=== PATIENT | female | born 1990 | race Two or more races ===

== ENCOUNTER 2019-09-23 19:32 | Emergency (ER) | payer OTHER ==
[~2019-09-23] VITALS: Ht 149.9 cm; Wt 51.7 kg
[2019-09-23 19:34] VITALS: BP 118/72
--- NOTE | 2019-09-23 19:43 | NUR ---
AT THE BED SIDE
--- NOTE | 2019-09-23 20:00 | NUR ---
BLOOD WAS DRAWN. PT IS MEDICALLY CLEAR FOR D/C, PT WAS INSTRUCTED TO F/U W/ [employer] [facility], Patient discharged to home in stable condition. Written and verbal after care instructions given. Patient verbalizes understanding of instruction.
== END 2019-09-23 20:00 | disposition home or self-care (01) ==
LOC: ER 19:39
DX: Z77.21 Contact with and (suspected) exposure to potentially hazardous body fluids (principal)
CPT/HCPCS: 36415; 86706; 86803; 87806

== ENCOUNTER 2019-11-14 09:45 | Emergency (ER) | payer OTHER ==
[~2019-11-14] VITALS: Ht 149.9 cm; Wt 51.7 kg
[2019-11-14 09:53] VITALS: BP 118/66
--- NOTE | 2019-11-14 10:10 | NUR ---
tel: [phone]
--- NOTE | 2019-11-14 10:11 | NUR ---
COVID SWAB DONE
== END 2019-11-14 10:12 | disposition home or self-care (01) ==
LOC: ER 09:49
DX: J02.9 Acute pharyngitis, unspecified (principal); Z20.828 Contact with and (suspected) exposure to other viral communicable diseases
CPT/HCPCS: 99283; C9803; U0003

== ENCOUNTER 2021-09-02 11:45 | Emergency (ER) | payer OTHER ==
[~2021-09-02] VITALS: Ht 149.9 cm; Wt 56.2 kg
--- NOTE | 2021-09-02 11:50 | NUR ---
NEAR SYNCOPAL EPISODE WHILE AT WORK, PALE UPON ARRIVAL. CAME IN BY WHEELCHAIR, [id number].
--- NOTE | 2021-09-02 12:15 | NUR ---
AT BED SIDE
--- NOTE | 2021-09-02 12:17 | NUR ---
ECG DONE NORMAL SINUS
--- NOTE | 2021-09-02 12:29 | NUR ---
IV LINE ESTABLISHED BLOOD DRAWN AND SENT TO LAB.
[2021-09-02] MEDS ORDERED: IV NS 0.9% 1,000 ML IV ONE (12:30)
[2021-09-02 12:51] LABS: BASOPHILS % (AUTO) 0.7 % (0.0-2.0); EOSINOPHILS % (AUTO) 0.7 % (0.0-6.0); HEMATOCRIT 37 % (33-45); HEMOGLOBIN 12.3 g/dL (11.5-14.8); LYMPHOCYTES # (AUTO) 1.9 K/uL (0.8-4.8); LYMPHOCYTES % (AUTO) 40.3 % (20.0-44.0); MEAN CORPUSCULAR HGB CONC 33 g/dl (31.0-36.0); MEAN CORPUSCULAR VOLUME 92 fL (82-100); MONOCYTES # (AUTO) 0.4 K/uL (0.1-1.30); MONOCYTES % (AUTO) 8.5 % (2.0-12.0); NEUTROPHILS # (AUTO) 2.3 K/uL (1.8-8.9); NEUTROPHILS % (AUTO) 49.8 % (43.0-81.0); PLATELET COUNT (AUTO) 248 K/uL (150-450); RED BLOOD CELL COUNT(AUTO) 4.05 MIL/uL (4.0-5.2); WHITE BLOOD COUNT (AUTO) 4.6 K/uL (4.3-11.0)
[2021-09-02 12:53] LABS: CALCIUM, SERUM 9.6 mg/dL (8.5-10.1); CARBON DIOXIDE 25 mmol/L (21-32); CHLORIDE 104 mmol/L (98-107); CREATININE 0.9 mg/dL (0.6-1.3); GLUCOSE 139 mg/dL (74-106); POTASSIUM 3.3 mmol/L (3.5-5.1); SODIUM SERUM 139 mmol/L (136-145); UREA NITROGEN, BLOOD 16 mg/dL (7-18)
[2021-09-02] MEDS ORDERED: ACETAMINOPHEN ES 500 MG TABLET PO ONE (13:30)
[2021-09-02] MEDS ORDERED: POTASSIUM CHLORIDE 20 MEQ TAB.PRT.SR PO ONE ×2 (13:30→13:51)
[2021-09-02] MEDS ORDERED: ACETAMINOPHEN ES 500 MG TABLET ONE (13:51)
--- NOTE | 2021-09-02 14:39 | NUR ---
IV removed. Catheter intact and site benign. Pressure and 4x4 applied to site. No bleeding noted.Patient discharged to home in stable condition. Written and verbal after care instructions given. Patient verbalizes understanding of instruction.
[2021-09-02 14:40] VITALS: BP 117/77
== END 2021-09-02 14:40 | disposition home or self-care (01) ==
LOC: ER 11:48
DX: I95.1 Orthostatic hypotension (principal); E78.5 Hyperlipidemia, unspecified
CPT/HCPCS: 36415; 80048; 82962; 84484; 84703; 85025; 93005; 96360; 99284; J7030